=== PATIENT | male | born 1940 | race Caucasian/White ===

== ENCOUNTER → 2017-01-24 | Outpatient (CLI) | payer MEDICARE ==
[~2017-01-24] MED LIST: ATROVENT INH S2.5 ML INH; CARDIZEM CD180 MG PO; COLACE100 MG PO; COUMADIN 10MG T10 MG PO; COUMADIN 5MG TAB5 MG PO; HYDROCHLOROTHIA50 MG PO; IPRAT-ALBUT 0.5-3 ML INH; ISOSORBIDE MONO60 MG PO; KLOR-CON20 MEQ PO; LEVOTHYROXINE25 MCG PO; LOPRESSOR100 MG PO; LORTAB 5-325 M1 EACH PO; MOVANTIK25 MG PO; NITROSTAT 0.40.4 MG SL; PREDNISONE10 MG PO; PRILOSEC OTC20 MG PO; THEO-DUR 300 M300 MG PO
== END ==
LOC: LAB 13:35
DX: Z51.81 Encounter for therapeutic drug level monitoring (principal); I48.91 Unspecified atrial fibrillation; Z79.01 Long term (current) use of anticoagulants
CPT/HCPCS: 36415; 85610

== ENCOUNTER → 2017-02-17 | Outpatient (CLI) | payer MEDICARE | LOC: HEART 5 10:57 | DX: R60.9 Edema, unspecified (principal); I48.91 Unspecified atrial fibrillation; I08.3 Combined rheumatic disorders of mitral, aortic and tricuspid valves ==

== ENCOUNTER 2017-03-02 14:34 | Inpatient (IN) | payer MEDICARE, OTHER ==
[~2017-03-02] VITALS: Ht 172.7 cm; Wt 114.3 kg
[~2017-03-02 14:34] MED LIST changes: -NITROSTAT 0.40.4 MG SL; -PREDNISONE10 MG PO; -PRILOSEC OTC20 MG PO
[2017-03-02] MEDS ORDERED: PREDNISONE10 MG PO (15:58)
[2017-03-02] MEDS ORDERED: PRILOSEC OTC20 MG PO (15:58)
[2017-03-02 17:18] LABS: RED BLOOD COUNT 4.4 M/UL (4.20-5.50); WHITE BLOOD COUNT 9.4 K/UL (4.5-11.0)
[2017-03-02 17:35] LABS: BUN/CREATININE RATIO 35 (0-10)
[2017-03-02] MEDS ORDERED: NITROSTAT 0.40.4 MG SL (18:28)
[2017-03-03 11:10] LABS: HEMOGLOBIN 13.4 gm/dl (14.0-17.5); RED BLOOD COUNT 4.24 M/UL (4.20-5.50); WHITE BLOOD COUNT 8.4 K/UL (4.5-11.0)
[2017-03-05 06:48] LABS: BUN/CREATININE RATIO 31 (0-10)
[2017-03-07 05:50] LABS: HEMOGLOBIN 12.8 gm/dl (14.0-17.5); RED BLOOD COUNT 4.04 M/UL (4.20-5.50); WHITE BLOOD COUNT 6.6 K/UL (4.5-11.0)
[2017-03-07 06:13] LABS: BUN/CREATININE RATIO 29 (0-10)
[2017-03-08 06:33] LABS: HEMOGLOBIN 13.2 gm/dl (14.0-17.5); RED BLOOD COUNT 4.18 M/UL (4.20-5.50); WHITE BLOOD COUNT 6.2 K/UL (4.5-11.0)
[2017-03-09 04:38] LABS: HEMOGLOBIN 12.3 gm/dl (14.0-17.5); RED BLOOD COUNT 3.92 M/UL (4.20-5.50); WHITE BLOOD COUNT 6.5 K/UL (4.5-11.0)
== END 2017-03-09 14:34 | DRG 536 ==
LOC: CARD SPC 14:34 → M/S 14:56
PROVIDERS: Emergency Medicine; ADMIT Family Medicine
DX: S32.402A Unspecified fracture of left acetabulum, initial encounter for closed fracture (principal); W19.XXXA Unspecified fall, initial encounter; I48.0 Paroxysmal atrial fibrillation; Z79.01 Long term (current) use of anticoagulants; M41.9 Scoliosis, unspecified; M19.90 Unspecified osteoarthritis, unspecified site; J44.9 Chronic obstructive pulmonary disease, unspecified; Z99.81 Dependence on supplemental oxygen; I10 Essential (primary) hypertension; G89.29 Other chronic pain; Z88.0 Allergy status to penicillin; Z87.891 Personal history of nicotine dependence; S32.302A Unspecified fracture of left ilium, initial encounter for closed fracture; E66.9 Obesity, unspecified; Z68.38 Body mass index [BMI] 38.0-38.9, adult
CPT/HCPCS: 36415; 72192; 73700; 80048; 85025; 85027; 85610; 93971; 94640; 94664; 97110; 97116; 97530; J1650